=== PATIENT | male | born 1950 | race Caucasian/White ===

== ENCOUNTER 2018-10-20 16:43 | Emergency (ER) | payer OTHER ==
--- NOTE | 2018-10-20 17:04 | EDPHY ---
H & P Stated Complaint: LLQ abd pain Time Seen by Provider: 10/20/18 17:04 HPI/ROS: CHIEF COMPLAINT: Left lower quadrant pain HISTORY OF PRESENT ILLNESS: The patient presents to the ED with complaints of acute left lower quadrant and left flank pain that began earlier today. The patient reports his pain is 10/10. It is associated with nausea. He denies any hematuria, dysuria or fever. He denies prior history of pyelonephritis or nephrolithiasis. The patient denies prior history of abdominal surgery. The patient denies significant past medical history. He takes no regular medications. REVIEW OF SYSTEMS: A comprehensive 10 point review of systems is otherwise negative aside from elements mentioned in the history of present illness. Source: Patient - Personal History Current Tetanus/Diphtheria Vaccine: No Current Tetanus Diphtheria and Acellular Pertussis (TDAP): No - Medical/Surgical History Hx Asthma: No Hx Chronic Respiratory Disease: No Hx Diabetes: No Hx Cardiac Disease: No Hx Renal Disease: No Hx Cirrhosis: No Hx Alcoholism: No Hx HIV/AIDS: No Hx Splenectomy or Spleen Trauma: No Other PMH: denies - Social History Smoking Status: Never smoked - Physical Exam Exam: General Appearance: Alert, thin male, writhing in pain Eyes: Pupils equal and round no pallor or injection ENT, Mouth: Mucous membranes moist Respiratory: There are no retractions, lungs are clear to auscultation Cardiovascular: Regular rate and rhythm Gastrointestinal: Mild tenderness to palpation in the left lower quadrant, moderate to severe left flank tenderness Neurological: 5/5 strength noted all 4 extremities, brisk pulses noted all 4 extremities Skin: Warm and dry, no rashes Musculoskeletal: Neck is supple nontender Extremities: symmetrical, full range of motion Constitutional: Initial Vital Signs Heart Rate 88 10/20/18 16:56 Respiratory Rate 30 H 10/20/18 16:56 Blood Pressure 164/89 H 10/20/18 16:56 O2 Sat (%) 91 L 10/20/18 16:56 O2 Delivery Mode Room Air Allergies/Adverse Reactions: No Known Allergies Allergy (Unverified 10/20/18 16:55) Home Medications: Medication Instructions Recorded Ibuprofen [Motrin (*)] 600 mg PO QID PRN #30 tab 10/20/18 Ondansetron Odt [Zofran Odt] 4 mg PO Q4PRN PRN #20 tab 10/20/18 Tamsulosin HCl [Flomax] 0.4 mg PO DAILY PRN #5 cap 10/20/18 oxyCODONE/APAP 5/325 [Percocet 1 - 2 tab PO Q6-8PRN PRN #20 tab 10/20/18 5/325 (RX)] Medical Decision Making - Diagnostics Imaging Results: Imaging Impressions Abdomen/Pelvis CT 10/20/18 17:14 Impression: 1. There is bilateral nephrolithiasis. 2. There is [id number] obstructive left-sided uropathy secondary to a 6 x 8 x 7 mm stone in the proximal left ureter at the cephalad L3 level. 3. Mild splenomegaly. 4. Moderate prostatomegaly. 5. There is a 4.7 mm noncalcified pulmonary nodule in the anterior right lower lobe. Please see the above algorithm for follow-up, as clinically directed. Attention: This CT examination is specifically designed to evaluate patients who are clinically suspected of having acute obstructive uropathy. This examination does not use radiographic contrast, and as such, provides only a limited evaluation of the abdomen, pelvis, and retroperitoneum. If there is further clinical suspicion for pathological conditions other than obstructive uropathy, a complete CT evaluation of the abdomen and pelvis utilizing intravenous, oral, and rectal contrast should be considered. Findings were discussed with Jase Bernal MD at 17:55, on 10/20/2018. ED Course/Re-evaluation: The patient presents to the ED with acute onset left flank pain that began 2 hr prior to arrival. The patient reports his pain is 10/10. He denies prior history of the symptoms. The patient is afebrile without evidence of septic physiology. Patient had an IV established. He received 0.5 mg of IV Dilaudid. He was taken for a stat CT scan of the abdomen pelvis. CT scan of the abdomen pelvis demonstrates a 6 x 7 proximal left ureteral stone. The patient was verified to have a normal creatinine. He was treated with IV Toradol and Flomax orally. The patient underwent serial examinations in the ED over a 2 hr period. At 6: 30 a.m. In the evening he is pain-free. Given the size the patient's stone he has been told that it is lower likelihood of passing. The patient was offered admission to the hospital for observation however given the complete resolution of his symptoms he prefers to go home. He understands return to the ED immediately for fever, intractable pain, intractable vomiting or other concerns. The patient is discharged home with customary aftercare instructions and pain medications. He is referred to our on-call urologist for follow-up. Differential Diagnosis: Differential diagnosis considered includes nephrolithiasis, ureterolithiasis, myofascial strain, abdominal aortic aneurysm, pyelonephritis - Data Points Laboratory Results: 10/20/18 17:15 POC Hgb 15.3 gm/dL gm/dL (13.7-17.5) POC Hct 45 % % (40-51) POC Sodium 143 mEq/L mEq/L (135-145) POC Potassium 3.4 mEq/L mEq/L (3.3-5.0) POC Chloride 104 mEq/L mEq/L (97-110) POC Total CO2 20 mEq/L L mEq/L (22-31) POC BUN 18 mg/dL mg/dL (7-23) POC Creatinine 1.1 mg/dL mg/dL (0.7-1.3) POC Glucose 114 mg/dL H mg/dL (70-100) Medications Given: Discontinued Medications Hydromorphone HCl (Dilaudid) 0.5 mg IVP EDNOW ONE Stop: 10/20/18 17:08 Last Admin: 10/20/18 17:16 Dose: 0.5 mg Sodium Chloride (Ns) 1,000 mls @ 0 mls/hr IV EDNOW ONE; Wide Open PRN Reason: Protocol Stop: 10/20/18 17:08 Last Admin: 10/20/18 17:16 Dose: 1,000 mls Ketorolac Tromethamine (Toradol) 30 mg IVP EDNOW ONE Stop: 10/20/18 17:57 Last Admin: 10/20/18 18:10 Dose: 30 mg Tamsulosin HCl (Flomax) 0.4 mg PO EDNOW ONE Stop: 10/20/18 17:58 Last Admin: 10/20/18 18:10 Dose: 0.4 mg Point of Care Test Results: Chemistry 10/20/18 17:15 POC Sodium 143 mEq/L mEq/L (135-145) POC Potassium 3.4 mEq/L mEq/L (3.3-5.0) POC Chloride 104 mEq/L mEq/L (97-110) POC Total CO2 20 mEq/L L mEq/L (22-31) POC BUN 18 mg/dL mg/dL (7-23) POC Creatinine 1.1 mg/dL mg/dL (0.7-1.3) POC Glucose 114 mg/dL H mg/dL (70-100) ISTAT H&H 10/20/18 17:15 POC Hgb 15.3 gm/dL gm/dL (13.7-17.5) POC Hct 45 % % (40-51) Departure - Departure Disposition: Home, Routine, Self-Care Clinical Impression: Renal colic on left side Condition: Good Instructions: Kidney Stones (ED) Additional Instructions: 1. Take Ibuprofen or Motrin 600 mg by mouth three times a day. 2. Percocet as needed for severe pain 3. Flomax as directed 4. Zofran as needed for nausea 5. Strain urine as directed 6. Return to the Emergency Department for intractable pain, fever or vomiting. 7. Followup with the urologist you have been referred to for unimproved symptoms. Referrals: Panchito Harvey MD [Medical Doctor] - As per Instructions Prescriptions: Ibuprofen [Motrin (*)] 600 mg PO QID PRN #30 tab PRN Reason: for pain Ondansetron Odt [Zofran Odt] 4 mg PO Q4PRN PRN #20 tab PRN Reason: For Nausea oxyCODONE/APAP 5/325 [Percocet 5/325 (RX)] 1 - 2 tab PO Q6-8PRN PRN #20 tab PRN Reason: for pain Tamsulosin HCl [Flomax] 0.4 mg PO DAILY PRN #5 cap PRN Reason: for pain
[2018-10-20] MEDS ORDERED: HYDROmorphONE/DILAUDID 2 MG/ML INJ IVP ONE (17:07)
[2018-10-20] MEDS ORDERED: NS 1,000 ML IV ONE (17:07)
[2018-10-20] MEDS ORDERED: KETOROLAC 30 MG/1 ML SDV IVP ONE (17:56)
[2018-10-20] MEDS ORDERED: TAMSULOSIN HCL 0.4 MG CAP PO ONE (17:57)
[2018-10-20 18:13] VITALS: BP 121/62
== END 2018-10-20 18:42 | disposition home or self-care (01) ==
DX: N20.0 Calculus of kidney (principal); N20.1 Calculus of ureter; N40.1 Benign prostatic hyperplasia with lower urinary tract symptoms; N13.9 Obstructive and reflux uropathy, unspecified; R91.1 Solitary pulmonary nodule; E86.9 Volume depletion, unspecified
CPT/HCPCS: 74176; 96374; 96375; 99285; J1170; J1885; 82435-PO; 82565-PO; 82947-PO; 84132-PO; 84295-PO; 84520-PO; 85014-ER

== ENCOUNTER 2018-10-22 17:02 | Observation (INO) | payer OTHER ==
[2018-10-22 17:47] LABS: PLATELET COUNT 151 10^3/uL (150-400)
[2018-10-22] MEDS ORDERED: HYDROmorphONE/DILAUDID 2 MG/ML INJ IVP ONE (18:37)
[2018-10-22] MEDS ORDERED: ONDANSETRON 4 MG/2 ML VIAL IVP ONE (18:37)
--- NOTE | 2018-10-22 18:37 | EDPHY ---
H & P Stated Complaint: LLQ pain Time Seen by Provider: 10/22/18 17:18 HPI/ROS: CHIEF COMPLAINT: Severe left flank pain HISTORY OF PRESENT ILLNESS: 68-year-old male presents with severe left flank pain. He was diagnosed with an 8mm left ureteral calculus [address] scan[address] He declined admission at that time. He was placed on Percocet and ibuprofen. Taking ibuprofen 600 mg every 6-8 hours. The pain continues to be severe and waxes and wanes. Associated with vomiting and inability to tolerate any fluids or food. No alleviating or aggravating factors. No fever and no urinary symptoms. REVIEW OF SYSTEMS: complete 10 point ROS reviewed and is negative except for the noted elements in the HPI - Personal History Current Tetanus/Diphtheria Vaccine: Yes Current Tetanus Diphtheria and Acellular Pertussis (TDAP): Yes - Medical/Surgical History Hx Asthma: No Hx Chronic Respiratory Disease: No Hx Diabetes: No Hx Cardiac Disease: No Hx Renal Disease: No Hx Cirrhosis: No Hx Alcoholism: No Hx HIV/AIDS: No Hx Splenectomy or Spleen Trauma: No Other PMH: kidney stone - Family History Significant Family History: No pertinent family hx - Social History Smoking Status: Never smoked Alcohol Use: Sober Drug Use: None Additional Social History: - Physical Exam Exam: General Appearance: Alert, pleasant Eyes: Pupils equal and round, no conjunctival pallor ENT, Mouth: Mucous membranes moist Neck: Normal inspection Respiratory: Lungs are clear to auscultation Cardiovascular: Regular rate and rhythm Gastrointestinal: Abdomen is soft and nontender Back: No CVA tenderness Neurological: A&O, nonfocal, normal gait Skin: Warm and dry, no rash Extremities: Normal inspection Psychiatric: Mood and affect normal Constitutional: Initial Vital Signs Temperature (C) 37.1 C 10/22/18 17:06 Heart Rate 58 L 10/22/18 17:06 Respiratory Rate 16 10/22/18 17:06 Blood Pressure 127/77 H 10/22/18 17:06 O2 Sat (%) 98 10/22/18 17:06 O2 Delivery Mode Room Air Allergies/Adverse Reactions: No Known Allergies Allergy (Unverified 10/22/18 17:05) Home Medications: Medication Instructions Recorded Ibuprofen [Motrin (*)] 600 mg PO QID PRN #30 tab 10/20/18 Ondansetron Odt [Zofran Odt] 4 mg PO Q4PRN PRN #20 tab 10/20/18 Tamsulosin HCl [Flomax] 0.4 mg PO DAILY PRN #5 cap 10/20/18 oxyCODONE/APAP 5/325 [Percocet 1 - 2 tab PO Q6-8PRN PRN #20 tab 10/20/18 5/325 (RX)] Carboxymethylcellulose 1% [Refresh 1 drop OP PRN PRN 10/22/18 Celluvisc] Herbals/Supplements -Info Only 1 ea PO DAILY 10/22/18 Medical Decision Making - Diagnostics Imaging Results: Imaging Impressions Abdomen X-Ray 10/22/18 17:21 Impression: No significant change in position of an 8 mm left ureteral stone at the level of L3. Imaging: I viewed and interpreted images myself ED Course/Re-evaluation: This patient presents with persistent left flank pain after recent diagnosis of ureteral calculus. KUB reveals a persistent 8 mm left ureteral calculus at the L3 level. Creatinine has bumped from 1.1-1.7. Urinalysis reveals no evidence of infection. Dilaudid 0.5 mg IV and Zofran 4 mg IV given. The patient is quite reluctant to be admitted and I had a prolonged discussion with the patient and his . He finally agrees to be admitted. The hospitalist service was consulted for admission and neurology was paged. Consulted Dr. Linares, will see pt in hospital. Differential Diagnosis: Differential diagnosis includes though it is not limited to appendicitis, cholecystitis, diverticulitis, pyelonephritis, bowel perforation, small bowel obstruction. - Data Points Laboratory Results: Laboratory Results 10/22/18 17:27 10/22/18 17:27 10/22/18 10/22/18 10/22/18 18:00 17:27 17:27 WBC 8.87 10^3/uL 10^3/uL (3.80-9.50) RBC 4.63 10^6/uL 10^6/uL (4.40-6.38) Hgb 14.2 g/dL g/dL (13.7-17.5) Hct 41.4 % % (40.0-51.0) MCV 89.4 fL fL (81.5-99.8) MCH 30.7 pg pg (27.9-34.1) MCHC 34.3 g/dL g/dL (32.4-36.7) RDW 14.2 % % (11.5-15.2) Plt Count 151 10^3/uL 10^3/uL (150-400) MPV 10.1 fL fL (8.7-11.7) Neut % (Auto) 85.6 % H % (39.3-74.2) Lymph % (Auto) 9.0 % L % (15.0-45.0) [place] % (Auto) 4.5 % % (4.5-13.0) Eos % (Auto) 0.1 % L % (0.6-7.6) Baso % (Auto) 0.5 % % (0.3-1.7) Nucleat RBC Rel Count 0.0 % % (0.0-0.2) Absolute Neuts (auto) 7.59 10^3/uL H 10^3/uL (1.70-6.50) Absolute Lymphs (auto) 0.80 10^3/uL L 10^3/uL (1.00-3.00) Absolute Monos (auto) 0.40 10^3/uL 10^3/uL (0.30-0.80) Absolute Eos (auto) 0.01 10^3/uL L 10^3/uL (0.03-0.40) Absolute Basos (auto) 0.04 10^3/uL 10^3/uL (0.02-0.10) Absolute Nucleated RBC 0.00 10^3/uL 10^3/uL (0-0.01) Immature Gran % 0.3 % % (0.0-1.1) Immature Gran # 0.03 10^3/uL 10^3/uL (0.00-0.10) Sodium 136 mEq/L mEq/L (135-145) Potassium 4.1 mEq/L mEq/L (3.5-5.2) Chloride 102 mEq/L mEq/L (97-110) Carbon Dioxide 24 mEq/l mEq/l (22-31) Anion Gap 10 mEq/L mEq/L (6-14) BUN 22 mg/dL mg/dL (7-23) Creatinine 1.7 mg/dL H mg/dL (0.7-1.3) Estimated GFR 40 Glucose 100 mg/dL mg/dL (70-100) Calcium 9.3 mg/dL mg/dL (8.5-10.4) Urine Color YELLOW Urine Appearance CLEAR Urine pH 5.0 (5.0-7.5) Ur Specific [place] 1.009 (1.002-1.030) Urine Protein NEGATIVE (NEGATIVE) Urine Ketones 1+ H (NEGATIVE) Urine Blood 2+ H (NEGATIVE) Urine Nitrate NEGATIVE (NEGATIVE) Urine Bilirubin NEGATIVE (NEGATIVE) Urine Urobilinogen NEGATIVE EU EU (0.2-1.0) Ur Leukocyte Esterase NEGATIVE (NEGATIVE) Urine RBC 1-3 /hpf /hpf (0-3) Urine WBC 1-3 /hpf /hpf (0-3) Ur Epithelial Cells NONE SEEN /lpf /lpf (NONE-1+) Urine Mucus TRACE /lpf /lpf (NONE-1+) Urine Glucose NEGATIVE (NEGATIVE) Medications Given: Tamsulosin HCl (Flomax) 0.4 mg PO DAILY TRAE Stop: 04/20/19 19:14 Last Admin: 10/22/18 19:37 Dose: 0.4 mg Discontinued Medications Hydromorphone HCl (Dilaudid) 0.5 mg IVP EDNOW ONE Stop: 10/22/18 18:38 Last Admin: 10/22/18 19:04 Dose: 0.5 mg Sodium Chloride (Ns) 1,000 mls @ 0 mls/hr IV ONCE ONE; Wide Open PRN Reason: Protocol Stop: 10/22/18 18:39 Last Admin: 10/22/18 18:42 Dose: 1,000 mls Ondansetron HCl (Zofran) 4 mg IVP EDNOW ONE Stop: 10/22/18 18:38 Last Admin: 10/22/18 19:03 Dose: 4 mg Departure - Departure Disposition: [facility] Clinical Impression: Renal colic on left side, Acute renal insufficiency Condition: Fair
[2018-10-22] MEDS ORDERED: NS 1,000 ML IV ONE (18:38)
[2018-10-22] MEDS ORDERED: ONDANSETRON DISINTEGRATING 4 MG TAB PO PRN (19:01)
[2018-10-22] MEDS ORDERED: ACETAMINOPHEN 325 MG TAB PO PRN (19:03)
[2018-10-22] MEDS: TAMSULOSIN HCL 0.4 MG CAP PO SCH (19:37)
[2018-10-22] MEDS ORDERED: CARBOXYMETHYLCELLULOSE 1% 0.4 ML DROPERETTE OP PRN (20:10)
--- NOTE | 2018-10-22 20:15 | GHP ---
[f rep st] HISTORY AND PHYSICAL DATE OF ADMISSION: 10/22/2018 CHIEF COMPLAINT: Renal colic. HISTORY OF PRESENT ILLNESS: This is a 68-year-old man who was in the ED two days ago for renal colic. At that point, CT scan showed a left-sided, 8 mm, proximal ureteral stone. He was discharged home at that time. He re-presents today with ongoing pain. He notes it is in the left lower quadrant, nonradiating, severe, stabbing in nature. He has also not tolerated any p.o. and has been vomiting. He has been taking ibuprofen for pain. PAST MEDICAL/SURGICAL HISTORY: None. MEDICATIONS: None. ALLERGIES: None. FAMILY HISTORY: No renal stones. His sister has inflammatory bowel disease. His father has leukemia. SOCIAL HISTORY: He smoked in college, has not smoked since. He does smoke medical marijuana. He drinks rare alcohol. REVIEW OF SYSTEMS: A 10-point review of systems is conducted and is negative except per HPI. PHYSICAL EXAM: VITAL SIGNS: Blood pressure 151/82, heart rate 61, respiration rate 16, saturating 98% on room air, temperature 37.1. GENERAL: The patient is a pleasant man who appears somewhat anxious. HEENT: Shows him to be normocephalic, atraumatic. CARDIOVASCULAR: Regular rate and rhythm. No murmurs, rubs, or gallops. PULMONARY: Lungs clear to auscultation bilaterally. ABDOMEN: Soft. He has mild tenderness to palpation in the left lower quadrant. This is non-peritoneal. SKIN: No rash. : Shows no Marte. NEUROLOGIC: Alert and oriented x3. Moving all extremities. PSYCHIATRIC: Normal mood and affect. LABS: CBC is normal. Creatinine is 1.7, it was 1.1 two days ago. Urinalysis shows 2+ blood, 1+ ketones. DATA: 1. Discussed with Dr. Shepherd. Will admit to Med/Surg. 2. I reviewed his abdomen and pelvis CT scan. This shows bilateral nephrolithiasis with obstructive left-sided uropathy due to an 8 mm stone in the proximal left ureter, mild splenomegaly, moderate prostatomegaly, as well as a 4.7 mm noncalcified pulmonary nodule. 3. Abdominal CT scan today shows ongoing presence of left ureteral stone. IMPRESSION AND PLAN: 1. Left-sided ureterolithiasis: Urology has been consulted. They will likely plan stone extraction. Will make him nothing by mouth now pending their evaluation. We will provide him with pain control as well as intravenous hydration. 2. Acute kidney injury: Suspect this is prerenal in the setting of limited oral intake and nausea with vomiting as well as NSAID use. Could also consider some mild postobstructive nephropathy. Will provide him intravenous fluids, hold nephrotoxins, and recheck his creatinine in the morning. 3. Anxiety: He tells me this is due to a history of trauma. He appears somewhat comfortable at this point. /[id number]/MODL MTDD
[2018-10-22] MEDS: oxyCODONE IR 5 MG TAB PO PRN (20:30)
[2018-10-22] MEDS: NS 1,000 ML IV SCH (20:31)
[2018-10-22] MEDS: HYDROmorphONE/DILAUDID 1 MG/ML INJ IVP PRN (21:43)
[2018-10-23] MEDS: HYDROmorphONE/DILAUDID 1 MG/ML INJ IVP PRN ×8 (01:14→20:04)
[2018-10-23] MEDS: oxyCODONE IR 5 MG TAB PO PRN ×3 (01:53→12:15)
[2018-10-23] MEDS: ONDANSETRON 4 MG/2 ML VIAL IVP PRN ×3 (02:00→15:00)
[2018-10-23] MEDS: HYDROCODONE/APAP 5/325 TAB PO PRN (04:20)
[2018-10-23] MEDS: NS 1,000 ML IV SCH ×2 (05:32→20:11)
[2018-10-23] MEDS: TAMSULOSIN HCL 0.4 MG CAP PO SCH (08:55)
--- NOTE | 2018-10-23 09:30 | GCON ---
[f rep st] CONSULTATION This is a 68-year-old gentleman I have been asked by Dr. Espino and Dr. Bernal to see for a left 8 mm proximal ureteral stone. He was seen in the emergency room several days prior, discharged home on p ain medications, returned to the emergency room, was admitted with severe stabbing pain. He has been having nausea and vomiting since that time. PAST HISTORY: Noncontributory. MEDICATIONS: Reviewed. ALLERGIES: None. FAMILY HISTORY: No history of kidney stones. His father had leukemia. SOCIAL HISTORY: Discontinued smoking. Rare alcohol consumption. He does smoke medical marijuana. REVIEW OF SYSTEMS: Negative cardiac, respiratory, GI. PHYSICAL EXAMINATION: VITAL SIGNS: Stable. CHEST: Clear. HEART: Regular rate and rhythm. ABDOM EN: Soft. No rebound or guarding. EXTREMITIES: Lower extremities are normal. He has had some left abdominal pain, and he says that he is feeling better now when I visit with him. I reviewed his labs. His creatinine is 1.78 on admission. Urinalysis had +2 blood with +1 ketones . At the present time, he is admitted for pain control, IV hydration, and I have discussed with him options of watch and wait to see if he passes a stone, intervention with ureteroscopy, or potential l ithotripsy. He says he has read on the Internet where shock wave can damage the kidney, so he prefer red not to do that, so we will plan on him undergoing ureteroscopic attempted removal of the stone. Indication, complications, and risks discussed. /[id number]/MODL
[2018-10-23] MEDS ORDERED: DIAZEPAM 5 MG/ML 1 ML SYR IVP PRN ×2 (11:32→17:30)
--- NOTE | 2018-10-23 11:33 | HOSPPROG ---
Hospitalist Progress Note Objective: Vital Signs Temp Pulse Resp BP Pulse Ox 36.9 C 67 16 111/57 L 99 10/23/18 08:13 10/23/18 08:13 10/23/18 08:13 10/23/18 08:13 10/23/18 08:13 Laboratory Results 10/23/18 04:50 10/22/18 10/23/18 10/24/18 05:59 05:59 05:59 Intake Total 1000 Output Total 525 200 Balance 475 -200 ICD10 Worksheet Patient Problems: Problems Problem Status Onset Renal colic on left side Acute Acute renal insufficiency Acute
--- NOTE | 2018-10-23 13:56 | ASMTCMCOM ---
CM Note CM Note Notes: Pt was admitted with severe L flank pain. He has a ureteral stone and is scheduled for surgery later on today. CM will follow for any d/c needs - anticipate he will d/c home independent with his . D/C plan: anticipate home independent Date Signed: 10/23/2018 01:55 PM Electronically Signed By:CRUZITO Raines
[2018-10-23] MEDS ORDERED: LIDOCAINE 2% JELLY 20 ML (UROJECT) ONE (14:27)
[2018-10-23] MEDS ORDERED: IOPAMIDOL (ISOVUE-M 300) 15 ML VIAL ONE (14:27)
[2018-10-23] MEDS ORDERED: LR 1,000 ML IV ONE (15:11)
--- NOTE | 2018-10-23 16:01 | PDANEPAE ---
ANE Past Medical History - Pulmonary History Hx Oxygen in Use at Home: No Hx Sleep Apnea: No Sleep Apnea Screening Result - Last Documented: Negative - Endocrine History Hx Diabetes: No ANE Review of Systems Review of Systems: ANE Patient History - Allergies Allergies/Adverse Reactions: No Known Allergies Allergy (Unverified 10/22/18 17:05) - Home Medications Home Medications: Carboxymethylcellulose 1% [Refresh Celluvisc] 1 drop OP PRN PRN 10/22/18 [Last Taken Unknown] Herbals/Supplements -Info Only 1 ea PO DAILY 10/22/18 [Last Taken 10/22/18] - NPO status NPO Since - Liquids (Date): 10/23/18 NPO Since - Liquids (Time): 09:00 NPO Since - Solids (Date): 10/22/18 NPO Since - Solids (Time): 11:00 - Smoking Hx Smoking Status: Never smoked - Alcohol Use Alcohol Use: Sober ANE Labs/Vital Signs - Labs Result Diagrams: 10/22/18 17:27 10/23/18 04:50 - Vital Signs Blood Pressure: 160/83 Heart Rate: 76 Respiratory Rate: 18 O2 Sat (%): 97 Height: 187.96 cm Weight: 65.227 kg
--- NOTE | 2018-10-23 16:09 | PDANEPAE ---
ANE History of Present Illness LEFT URETERAL STONE ANE Past Medical History - Cardiovascular History Hx Hypertension: No Hx Arrhythmias: No Hx Chest Pain: No Hx Coronary Artery / Peripheral Vascular Disease: No Hx CHF / Valvular Disease: No Hx Palpitations: No - Pulmonary History Hx COPD: No Hx Asthma/Reactive Airway Disease: No Hx Recent Upper Respiratory Infection: No Hx Oxygen in Use at Home: No Hx Sleep Apnea: No Sleep Apnea Screening Result - Last Documented: Negative - Endocrine History Hx Diabetes: No Hypothyroid: No Obesity: no ANE Review of Systems Review of systems is: negative Review of Systems: - Exercise capacity Exercise capacity: >=4 METS ANE Patient History - Allergies Allergies/Adverse Reactions: No Known Allergies Allergy (Unverified 10/22/18 17:05) - Home Medications Home medications: home medication list seen and reviewed Home Medications: Carboxymethylcellulose 1% [Refresh Celluvisc] 1 drop OP PRN PRN 10/22/18 [Last Taken Unknown] Herbals/Supplements -Info Only 1 ea PO DAILY 10/22/18 [Last Taken 10/22/18] - NPO status NPO Since - Liquids (Date): 10/23/18 NPO Since - Liquids (Time): 09:00 NPO Since - Solids (Date): 10/22/18 NPO Since - Solids (Time): 11:00 - Anes Hx Anes Hx: no prior problems - Smoking Hx Smoking Status: Never smoked - Alcohol Use Alcohol Use: Sober ANE Labs/Vital Signs - Labs Result Diagrams: 10/22/18 17:27 10/23/18 04:50 - Vital Signs Blood Pressure: 160/83 Heart Rate: 76 Respiratory Rate: 18 O2 Sat (%): 97 Height: 187.96 cm Weight: 65.227 kg ANE Physical Exam - Airway Neck exam: FROM Mallampati Score: Class 1 Mouth exam: normal dental/mouth exam - Pulmonary Pulmonary: no respiratory distress - Cardiovascular Cardiovascular: regular rate and rhythym - ASA Status ASA Status: II ANE Anesthesia Plan Anesthesia Plan: GA w LMA
[2018-10-23] MEDS ORDERED: MIDAZOLAM 2 MG/2 ML VIAL IVP ONE (16:10)
[2018-10-23] MEDS ORDERED: PROPOFOL 200 MG/20 ML VIAL ONE (16:13)
[2018-10-23] MEDS ORDERED: fentaNYL 100 MCG/2 ML INJ ONE (16:13)
[2018-10-23] MEDS ORDERED: fentaNYL 100 MCG/2 ML INJ IV ONE (16:45)
[2018-10-23] MEDS ORDERED: ONDANSETRON 4 MG/2 ML VIAL IVP ONE (16:45)
[2018-10-23] MEDS ORDERED: CEFAZOLIN 2 GM/DEXTROSE/100 ML BAG IV ONE (16:56)
--- NOTE | 2018-10-23 17:12 | POSTOPPROG ---
Post Op Note Date of Operation: 10/23/18 (dictated) Surgeon: Irineo Lopez Anesthesiologist: rossana Anesthesia: LMA Pre-op Diagnosis: left ureteral stone Procedure: ureteroscopy Inf/Abcess present in the surg proc area at time of surgery?: No Drains: Other (stent / catheter)
[2018-10-23] MEDS ORDERED: fentaNYL 100 MCG/2 ML INJ IVP PRN (17:30)
[2018-10-23] MEDS ORDERED: oxyCODONE IR 5 MG TAB PO PRN (17:30)
[2018-10-23] MEDS ORDERED: LR 500 ML IV PRN (17:30)
[2018-10-23] MEDS ORDERED: HYDROmorphONE/DILAUDID 1 MG/ML INJ IVP PRN (17:30)
[2018-10-23] MEDS ORDERED: ONDANSETRON 4 MG/2 ML VIAL IVP PRN (17:30)
[2018-10-23] MEDS ORDERED: HYDROCODONE/APAP 5/325 TAB PO PRN (17:30)
[2018-10-23] MEDS ORDERED: PHENYLEPHRINE HCL 100 MCG/ML SYR IVP PRN (17:30)
[2018-10-23] MEDS ORDERED: ACETAMINOPHEN 500 MG TAB PO PRN (17:30)
[2018-10-23] MEDS ORDERED: PROMETHAZINE HCL 25 MG/ML INJ IVP PRN (17:30)
[2018-10-23] MEDS ORDERED: ALBUTEROL 3 ML DEYVIAL IH PRN (17:30)
[2018-10-23] MEDS ORDERED: NALOXONE HCL 0.4 MG/ML INJ IVP PRN (17:30)
--- NOTE | 2018-10-23 17:30 | POSTANESTH ---
Post Anesthetic Evaluation Cardiovascular Status: Normal, Stable Respiratory Status: Normal, Stable Level of Consciousness/Mental Status: Can Participate in Eval, Mildly Sleepy, Arousable Pain Control: Adequate, Prn Tx Ordered Nausea/Vomiting Control: Adequate, Prn Tx Ordered Complications Possibly Related to Anesthesia: None Noted
[2018-10-23] MEDS ORDERED: ceFAZolin 2 GM/DEXTROSE 100 ML IV ONE (18:03)
[2018-10-23] MEDS ORDERED: MEPERIDINE 25 MG/0.5 ML AMP ONE (18:35)
--- NOTE | 2018-10-23 18:38 | GOP ---
[f rep st] OPERATIVE REPORT DATE OF OPERATION: 10/23/2018 SURGEON: Irineo Lopez MD PREOPERATIVE DIAGNOSIS: Left ureteral calculus, hydronephrosis. POSTOPERATIVE DIAGNOSIS: Left ureteral calculus, hydronephrosis. PROCEDURE PERFORMED: Cystoscopy, retrograde ureteropyelogram, dilation of the ureter, placement of u reteral access sheath, dislodging the stone in the renal pelvis and kidney, then ureteroscopic lithot ripsy with holmium laser of the ureteral/renal stone, placement of a 4.5-Moroc[place] multi-length stent an d exam under anesthesia. FINDINGS: DESCRIPTION OF PROCEDURE: The gentleman underwent general anesthesia, prepped and draped in normal s terile fashion in dorsal lithotomy position, and he had meatal stenosis identified and that was dilat ed, but after undergoing general anesthesia, after appropriate time-out of identifying the patient an d appropriate protocol follow-through, then at that point, he had a significant BPH with intravesical lobe of the prostate and obstruction. I could identify the left ureteral orifice was cannulated wit h a [place] catheter and that was dilated over ureteral access guidewire, and then I was able to pass the flexible ureteroscope up to identify the stone. I manipulated the stone so it went up into an u pper pole calyx and then was able to fragment the stone into multiple pieces and at the end of that p rocedure, I could not visualize a piece by x-ray and then at that point, removal of the scope and the sheath under direct vision revealed no trauma or perforation of the ureter. Because of the stone fr agments and the degree of inflammatory reaction noted in the kidney, I elected to place a 4.7 multi-l ength stent that curled in the renal pelvis and curled in the bladder, and a Uro-jet placed in urethr a, Marte catheter used to drain his bladder. Rectal exam revealed a benign-feeling prostate and test icles were normal bilaterally without mass or infection. At the present time, he will be admitted ov [facility] for postoperative care and then to have the stent removed in approximately 1 week. We will a lso just have him strain his urine to obtain the stone, but they appeared to be a calcium oxalate mon ohydrate. /[id number]/MODL
[2018-10-23] MEDS ORDERED: MEPERIDINE 25 MG/0.5 ML AMP IV ONE (19:00)
--- NOTE | 2018-10-23 20:11 | HOSPPROG ---
Hospitalist Progress Note Assessment/Plan: 68 yo M presenting with ureterolithiasis, flank pain and anxiety # ureterolithiasis: on the left, 8mm with evidence of obstruction and severe pain, s/p lithotripsy and ureteral stenting by Dr. Lopez today # johnathan: presumably due to above and poor po intake though not much improvement with IVF, will continue fluids and trend # anxiety: relatively severe, patient having a hard time even speaking to me today, started prn valium and will recomend f/u with op therapist # IP status Patient new to my care. Old records reviewed and summarized as above. Subjective: patient states that he is in a lot of pain and needs the nurse right now and then everything will be ok, states he really cannot talk to me right now as he needs the nurse Objective: Vital Signs Temp Pulse Resp BP Pulse Ox 36.6 C 69 16 154/76 H 94 10/23/18 19:50 10/23/18 19:50 10/23/18 19:50 10/23/18 19:50 10/23/18 19:50 Laboratory Results 10/23/18 04:50 10/22/18 10/23/18 10/24/18 05:59 05:59 05:59 Intake Total 1000 1550 Output Total 525 655 Balance 475 895 awake anxious anicteric mmm rrr no mrg cta soft ttp left no cce warm dry well perfused oriented anxious ICD10 Worksheet Patient Problems: Problems Problem Status Onset Renal colic on left side Acute Acute renal insufficiency Acute
[2018-10-24] MEDS: HYDROmorphONE/DILAUDID 1 MG/ML INJ IVP PRN (02:43)
[2018-10-24] MEDS: HYDROCODONE/APAP 5/325 TAB PO PRN (02:43)
--- NOTE | 2018-10-24 08:12 | SOAPPROG ---
SOAP Progress Note Assessment/Plan: Assessment: Renal colic on left side Acute POD #1, doing well, stent to remain, dumont out Plan: DC per IM, see John in 10 days for stent removal 10/24/18 08:10 Subjective: ok Objective: Vital Signs Temp Pulse Resp BP Pulse Ox 36.6 C 72 16 113/61 99 10/24/18 07:26 10/24/18 07:26 10/24/18 07:26 10/24/18 07:26 10/24/18 07:26 Laboratory Results 10/24/18 04:35 10/24/18 04:35 10/23/18 10/24/18 10/25/18 05:59 05:59 05:59 Intake Total 1000 1850 1000 Output Total 525 1755 Balance 534 29 6576 Physical Exam - Physical Exam General Appearance: alert Respiratory: No respiratory distress Cardiac/Chest: regular rate, rhythm Abdomen: soft Back: CVA tenderness (stent related) Neuro/Psych: alert, oriented x 3 ICD10 Worksheet Patient Problems: Problems Problem Status Onset Acute renal insufficiency Acute Renal colic on left side Acute
[2018-10-24] MEDS: TAMSULOSIN HCL 0.4 MG CAP PO SCH (09:06)
--- NOTE | 2018-10-24 10:23 | PDDCSUM ---
Discharge Summary Discharge Summary: Dates of service 10/22-10/24/18 Consultations: urology Procedures performed: cystoscopy, lithotripsy, ureteral stent Hospital course by problem: 68 yo M presenting with ureterolithiasis, flank pain and anxiety # ureterolithiasis: on the left, 8mm with evidence of obstruction and severe pain, s/p lithotripsy and ureteral stenting by Dr. Lopez today # johnathan: presumably due to above and poor po intake though not much improvement with IVF, will continue fluids and trend # anxiety: relatively severe, patient having a hard time even speaking to me today, started prn valium and will recomend f/u with op therapist # DC home f/u with PCP and with urology as planned for stent removal > 35 min spent in dc more than half in coordination of care
--- NOTE | 2018-10-24 11:07 | ASMTCMCOM ---
CM Note CM Note Notes: Pt's chart reviewed and Pt discussed with RN. Marte d/c and Pt will have to urinate before going home. CM available For needs. PLAN Home independently Date Signed: 10/24/2018 11:06 AM Electronically Signed By:Migdalia Casanova
[2018-10-24] MEDS: oxyCODONE IR 5 MG TAB PO PRN (11:09)
[2018-10-24 11:45] VITALS: BP 136/70
== END 2018-10-24 16:17 | disposition home or self-care (01) ==
LOC: F1N 19:50
PROVIDERS: ADMIT Student in an Organized Health Care Education/Training Program; ATTEND Internal Medicine
PROC: 0T9 Urinary System, Drainage (ICD-10-PCS; principal; 2018-10-22)
PROC: 0TC78ZZ Extirpation of Matter from Left Ureter, Via Natural or Artificial Opening Endoscopic (ICD-10-PCS; principal; 2018-10-22)
PROC: BT1F1ZZ Fluoroscopy of Left Kidney, Ureter and Bladder using Low Osmolar Contrast (ICD-10-PCS; principal; 2018-10-22)
DX: N13.2 Hydronephrosis with renal and ureteral calculous obstruction (principal); N17.9 Acute kidney failure, unspecified; F41.9 Anxiety disorder, unspecified; E86.9 Volume depletion, unspecified; Z87.442 Personal history of urinary calculi
CPT/HCPCS: 52356; 74018; 76000; 96361; 96374; 96375; 99285; C1758; C1769; C1894; C2625; G0378; J0690; J1170; J2175; J2250; J2405; J2704; J3010; Q9967; J3360